=== PATIENT | female | born 1995 | race American Indian/Alaskan Native ===

== ENCOUNTER 2018-07-05 06:57 | Emergency (ER) | payer MEDICAID ==
[2018-07-05] MEDS ORDERED: DELTASONE PO ONE (07:41)
[2018-07-05] MEDS ORDERED: TYLENOL/CODEINE PO ONE (07:42)
--- NOTE | 2018-07-05 08:39 | Emergency Department Report ---
HPI - General Chief Complaint: Sore Throat Time Seen by Provider: 07/05/18 07:25 - HPI HPI: Patient is a 22-year-old female 36 weeks gestation with no prior medical conditions who presents to ED complaining of sore throat 2 days. Patient states she is intermittent coughing for the past week. Patient states when she saw her [employer] last week she was advised to take Robitussin for the cold/cough. She denies productive cough. She denies fevers/chills/nausea vomiting/ abdominal pain. Patient states she has a history of bronchitis and has an inhaler at home but is running out of puffs. Patient states she has appointment with her [employer] next week Sunday she reports good movement ED Past Medical Hx - Past Medical History Previous Medical History?: No - Surgical History Additional Surgical History: cyst removal, 08-30-2015 - Social History Smoking Status: Never Smoker Substance Use Type: None - Medications Home Medications: Home Medications Medication Instructions Recorded Confirmed Last Taken Type metroNIDAZOLE [Flagyl] 500 mg PO Q8H #21 tablet 07/06/14 Unknown Rx traMADol [Ultram 50 MG tab] 50 mg PO Q6HR PRN #12 tablet 07/06/14 Unknown Rx Dicyclomine [Bentyl] 10 mg PO QID PRN #20 capsule 01/01/16 Unknown Rx Doxycycline [Vibramycin] 100 mg PO Q12HR #28 capsule 01/01/16 Unknown Rx Ondansetron [Zofran Odt] 4 mg PO QID PRN #20 tab.rapdis 01/01/16 Unknown Rx ALBUTEROL Inhaler(NF) [VENTOLIN 1 puff IH PRN PRN #1 inha 07/05/18 Unknown Rx Inhaler(NF)] Acetamin/Codeine 120-12Mg/5 ml 5 ml PO TID #40 ml 07/05/18 Unknown Rx [Tylenol/Codeine 120-12 mg/5 ml] predniSONE [Deltasone] 20 mg PO DAILY #4 tablet 07/05/18 Unknown Rx ED Review of Systems ROS: Stated complaint: THROAT PAIN Other details as noted in HPI Constitutional: denies: chills, fever Eyes: denies: eye pain, eye discharge, vision change ENT: throat pain. denies: ear pain, hearing loss Respiratory: cough. denies: shortness of breath, SOB with exertion, SOB at rest , wheezing Cardiovascular: denies: chest pain, palpitations Endocrine: no symptoms reported Gastrointestinal: denies: abdominal pain, nausea, vomiting, diarrhea Genitourinary: denies: urgency, dysuria, discharge Musculoskeletal: denies: back pain, joint swelling, arthralgia Skin: denies: rash, lesions Neurological: denies: headache, weakness, paresthesias Psychiatric: denies: anxiety, depression Hematological/Lymphatic: denies: easy bleeding, easy bruising Physical Exam - Physical Exam Vital Signs: Vital Signs 07/05/18 07:04 Temperature 98.4 F Pulse Rate 101 H Respiratory 18 Rate Blood Pressure 116/67 O2 Sat by Pulse 97 Oximetry Physical Exam: GENERAL: Alert and oriented x3, no apparent distress, Normal Gait, atraumatic. HEAD: Head is normocephalic and a-traumatic. EYES: Extra ocular muscles are intact. Pupils are equal, round, and reactive to light and accommodation. EARS: symetrical, atraumatic, non tender, ear canal clear and mild cerumen, tympanic membrance non inflamed. gross auditory nml bilaterally. NOSE: Nose symetrical, Nontender,Nares appeared normal. MOUTH:Mouth is well hydrated and without lesions. Tonsils nonerythematous or swollen, Uvula midline, Tongue not elevated. Mucous membranes are moist. Posterior pharynx clear, no exudate or lesions. Patent airways. NECK: Supple. Non edematous, No carotid bruits. No lymphadenopathy or thyromegaly. No C-spine tenderness LUNGS: Symetrical with respiration, No wheezing, no rales or crackles, CTAB. HEART: S1, S2 present, regular rate and rhythm without murmur, no rubs, no gallops. Non tender to palpation Abdomen: Gravid SKIN: Warm and dry, No lesions, No ulceration or induration present. ED Course Vital Signs 07/05/18 07:04 Temperature 98.4 F Pulse Rate 101 H Respiratory 18 Rate Blood Pressure 116/67 O2 Sat by Pulse 97 Oximetry ED Medical Decision Making - Medical Decision Making 22-year-old female present with bronchitis ED course: Patient received 60 mg of prednisone and Tylenol with codeine Rapid strep test negative I discussed with patient bronchitis usually resolves on its own. I discussed the patient to get appropriate rest. Discussed with patient his symptoms worsen to return to ED immediately Vital signs are normalized, pulse rate came down prior to discharge. Patient is in no acute respiratory distress. Patient will be sent home on a short course of oral steroids with albuterol inhaler and continue Robitussin I discussed the patient to follow up with her doctor within a week. patient is in no respiratory distress she understands instructions. Critical care attestation.: If time is entered above; I have spent that time in minutes in the direct care of this critically ill patient, excluding procedure time. ED Disposition Clinical Impression: Bronchitis Disposition: DC-01 TO HOME OR SELFCARE Is pt being admited?: No Does the pt Need Aspirin: No Condition: Stable Instructions: Chronic Bronchitis (ED) Additional Instructions: Make sure to follow up with the primary care physician as discussed. Take all your medications as you've been prescribed. If you have any worsening symptoms or develop new symptoms please return to ED immediately. Prescriptions: Acetamin/Codeine 120-12Mg/5 ml [Tylenol/Codeine 120-12 mg/5 ml] 5 ml PO TID #40 ml ALBUTEROL Inhaler(NF) [VENTOLIN Inhaler(NF)] 1 puff IH PRN PRN #1 inha PRN Reason: Cough predniSONE [Deltasone] 20 mg PO DAILY #4 tablet Referrals: PRIMARY CARE, [Primary Care Provider] - 3-5 Days Forms: Work/School Release Form(ED) Time of Disposition: 08:49
[2018-07-05 09:18] VITALS: BP 112/79
== END 2018-07-05 09:15 | disposition home or self-care (01) ==
LOC: ED 06:57
DX: J40 Bronchitis, not specified as acute or chronic (principal)
CPT/HCPCS: 87116; 87430; 99283; J7512

== ENCOUNTER 2020-06-28 10:21 | Emergency (ER) | payer MEDICAID ==
[2020-06-28 10:44] VITALS: BP 146/86
== END 2020-06-28 11:18 | disposition left against medical advice (07) ==
LOC: ED 10:21
DX: R10.9 Unspecified abdominal pain (principal); Z53.21 Procedure and treatment not carried out due to patient leaving prior to being seen by health care provider

== ENCOUNTER 2020-06-28 20:36 | Emergency (ER) | payer MEDICAID ==
[2020-06-29] MEDS ORDERED: AZITHROMYCIN 250 MG TAB PO ONE (03:48)
[2020-06-29] MEDS ORDERED: LIDOCAINE-MPF (1%) 10 MG/1 ML VIAL 5 ML INFILTRATI ONE (03:54)
[2020-06-29] MEDS ORDERED: ONDANSETRON 4 MG ODT TAB PO ONE (03:55)
[2020-06-29] MEDS ORDERED: IBUPROFEN 800 MG TAB PO ONE (03:55)
[2020-06-29 04:25] LABS: Bilirubin,Urine NEG (Negative); Blood,Urine NEG (Negative); Color,Urine Yellow (Yellow); HCG Qualitative,Urine Negative (Negative); Protein,Urine <15 mg/dL mg/dL (Negative)
[2020-06-29] MEDS ORDERED: metroNIDAZOLE 500 MG TAB PO ONE (04:27)
--- NOTE | 2020-06-29 04:32 | Emergency Department Report ---
ED Female HPI - General Chief complaint: Urogenital-Female Stated complaint: SEVERE ABD PAIN/VAGINAL IRRITATION/POSS STD Source: patient Mode of arrival: Ambulatory Limitations: No Limitations - History of Present Illness Initial comments: Patient is a A0 24-year-old -[place] female with no past medical history who presents to the ED with vaginal discharge, vaginal pain and ulcerated lesion in the vaginal area for the last 2 days. Patient states that she suspects that she may have been infected with an STD by her after another woman called her and told her to come to the hospital for evaluation because she had been having unprotected sexual intercourse with her who has since made a . Patient denies dysuria, dyspareunia, nausea, v omiting, fever, chills, abdominal pain, dizziness, syncope, vaginal bleeding, cough, sore throat, headache or diarrhea. MD Complaint: vaginal discharge, possible STD, other (vaginal pain) -: Sudden, days(s) (2) Location: other (vaginal) Radiation: non-radiating Severity: severe Severity scale (0 -10): 8 Quality: sharp, aching Consistency: constant Improves with: none Worsens with: intercourse Are you Now?: No Last Menstrual Period: 06/17/20 EDC: 03/24/21 Associated Symptoms: denies other symptoms, vaginal discharge. denies: vaginal bleeding, abdominal pain, nausea/vomiting, fever/chills, headaches, loss of appetite, dysuria, hematuria, rash, seizure, shortness of breath, syncope, weakness, other - Related Data Sexually active: Yes : 2 Para: 2 A: 0 Previous Rx's Medication Instructions Recorded Last Taken Type metroNIDAZOLE [Flagyl] 500 mg PO Q8H #21 tablet 07/06/14 Unknown Rx traMADoL [Ultram 50 MG tab] 50 mg PO Q6HR PRN #12 tablet 07/06/14 Unknown Rx Dicyclomine [Bentyl] 10 mg PO QID PRN #20 capsule 01/01/16 Unknown Rx Ondansetron [Zofran Odt] 4 mg PO QID PRN #20 tab.rapdis 01/01/16 Unknown Rx ALBUTEROL Inhaler(NF) [VENTOLIN 1 puff IH PRN PRN #1 inha 07/05/18 Unknown Rx Inhaler(NF)] Acetamin/Codeine 120-12Mg/5 ml 5 ml PO TID #40 ml 07/05/18 Unknown Rx [Tylenol/Codeine 120-12 mg/5 ml] predniSONE [Deltasone] 20 mg PO DAILY #4 tablet 07/05/18 Unknown Rx DOXYCYCLINE Hyclate [Vibramycin 100 mg PO Q12HR #20 capsule 06/29/20 Unknown Rx CAP] Fluconazole (Nf) [Diflucan TAB] 150 mg PO ONCE #2 tablet 06/29/20 Unknown Rx Ibuprofen [Motrin] 800 mg PO Q8HR PRN #30 tablet 06/29/20 Unknown Rx Ondansetron [Zofran Odt] 4 mg PO Q8HR PRN #15 tab.rapdis 06/29/20 Unknown Rx Valacyclovir HCl [Valtrex] 1,000 mg PO Q8H #30 tablet 06/29/20 Unknown Rx metroNIDAZOLE [Flagyl] 500 mg PO Q12HR #14 tab 06/29/20 Unknown Rx Allergies Allergy/AdvReac Type Severity Reaction Status Date / Time latex Allergy Unknown Verified 06/28/20 21:36 ED Review of Systems ROS: Stated complaint: SEVERE ABD PAIN/VAGINAL IRRITATION/POSS STD Other details as noted in HPI Constitutional: denies: chills, fever Eyes: denies: eye pain, eye discharge, vision change ENT: denies: ear pain, throat pain Respiratory: denies: cough, shortness of breath, wheezing Cardiovascular: denies: chest pain, palpitations Endocrine: no symptoms reported Gastrointestinal: denies: abdominal pain, nausea, diarrhea Genitourinary: frequency, discharge, other (painful vaginal lesions; vaginal discharge). denies: urgency, dysuria Musculoskeletal: denies: back pain, joint swelling, arthralgia Skin: denies: rash, lesions Neurological: denies: headache, weakness, paresthesias Psychiatric: denies: anxiety, depression Hematological/Lymphatic: denies: easy bleeding, easy bruising ED Past Medical Hx - Past Medical History Previous Medical History?: Yes Hx Hypertension: Yes - Surgical History Past Surgical History?: Yes Additional Surgical History: cyst removal, 08-30-2015 - Social History Smoking Status: Never Smoker Substance Use Type: None - Medications Home Medications: Home Medications Medication Instructions Recorded Confirmed Last Taken Type metroNIDAZOLE [Flagyl] 500 mg PO Q8H #21 tablet 10/20/14 Unknown Rx traMADoL [Ultram 50 MG tab] 50 mg PO Q6HR PRN #12 tablet 07/06/14 Unknown Rx Dicyclomine [Bentyl] 10 mg PO QID PRN #20 capsule 01/01/16 Unknown Rx Ondansetron [Zofran Odt] 4 mg PO QID PRN #20 tab.rapdis 01/01/16 Unknown Rx ALBUTEROL Inhaler(NF) [VENTOLIN 1 puff IH PRN PRN #1 inha 07/05/18 Unknown Rx Inhaler(NF)] Acetamin/Codeine 120-12Mg/5 ml 5 ml PO TID #40 ml 07/05/18 Unknown Rx [Tylenol/Codeine 120-12 mg/5 ml] predniSONE [Deltasone] 20 mg PO DAILY #4 tablet 07/05/18 Unknown Rx DOXYCYCLINE Hyclate [Vibramycin 100 mg PO Q12HR #20 capsule 06/29/20 Unknown Rx CAP] Fluconazole (Nf) [Diflucan TAB] 150 mg PO ONCE #2 tablet 06/29/20 Unknown Rx Ibuprofen [Motrin] 800 mg PO Q8HR PRN #30 tablet 06/29/20 Unknown Rx Ondansetron [Zofran Odt] 4 mg PO Q8HR PRN #15 tab.rapdis 06/29/20 Unknown Rx Valacyclovir HCl [Valtrex] 1,000 mg PO Q8H #30 tablet 06/29/20 Unknown Rx metroNIDAZOLE [Flagyl] 500 mg PO Q12HR #14 tab 06/29/20 Unknown Rx ED Physical Exam - General Limitations: No Limitations General appearance: alert, in no apparent distress - Head Head exam: Present: atraumatic, normocephalic, normal inspection - Eye Eye exam: Present: normal appearance, PERRL, EOMI Pupils: Present: normal accommodation - ENT ENT exam: Present: normal exam, normal orophraynx, mucous membranes moist, TM's normal bilaterally, normal external ear exam - Neck Neck exam: Present: normal inspection, full ROM - Respiratory Respiratory exam: Present: normal lung sounds bilaterally. Absent: respiratory distress, wheezes, rales, rhonchi, chest wall tenderness, accessory muscle use, decreased breath sounds, prolonged expiratory - Cardiovascular Cardiovascular Exam: Present: regular rate, normal rhythm, normal heart sounds. Absent: systolic murmur, diastolic murmur, rubs, gallop - GI/Abdominal GI/Abdominal exam: Present: soft, normal bowel sounds. Absent: tenderness, guarding, rebound, hyperactive bowel sounds, hypoactive bowel sounds, o rganomegaly - External exam: Present: erythema, lesions (ulcerated tender lesions in the perineum and vaginal vault) Speculum exam: Present: vaginal discharge, cervical discharge Bi-manual exam: Present: normal bi-manual exam, other (Female ED [employer] substance abuse services director Ms Brown present) - Extremities Exam Extremities exam: Present: normal inspection, full ROM, normal capillary refill - Back Exam Back exam: Present: normal inspection, full ROM. Absent: tenderness, CVA tenderness (R), CVA tenderness (L), muscle spasm - Neurological Exam Neurological exam: Present: alert, oriented X3, CN II-XII intact, normal gait, reflexes normal - Psychiatric Psychiatric exam: Present: normal affect, normal mood - Skin Skin exam: Present: warm, dry, intact, normal color. Absent: rash ED Course Vital Signs 06/28/20 06/29/20 21:35 04:08 Temperature 98.6 F Pulse Rate 82 Respiratory 18 14 Rate Blood Pressure 120/75 O2 Sat by Pulse 98 Oximetry ED Medical Decision Making - Medical Decision Making This is a A0 24-year-old -[place] female with no past medical history who presents to the ED with vaginal discharge, vaginal pain and ulcerated lesion in the vaginal area for the last 2 days. Patient states that she suspects that she may have been infected with an STD by her after another woman called her and told her to come to the hospital for evaluation because she had been having unprotected sexual intercourse with her who has since made a . In the ED, patient is alert and oriented x3 and is not in distress. Urinalysis is unremarkable and urine hCG test is negative. Wet prep was positive for trichomonas and Gardnerella vaginalis but no Vee. Chlamydia and gonorrhea test results are pending. Patient was empirically treated for chlamydia and gonorrhea in the ED and also treated for trichomonas with Flagyl in the ED. Patient was also treated for pain. On reevaluation, patient's pain is well controlled with medications. Patient was discharged home on oral antibiotics for bacterial vaginosis as well as antiviral for genital herpes infection. Patient was advised to follow-up at the [facility] for further STD testing including HIV and syphilis. Patient was advised to return to the ED immediately if symptoms get worse. - Differential Diagnosis Genital herpes; STD; Trichomonas; BV; PID Critical care attestation.: If time is entered above; I have spent that time in minutes in the direct care of this critically ill patient, excluding procedure time. ED Disposition Clinical Impression: STD (sexually transmitted disease), Trichomonas infection, Bacterial vaginosis Genital herpes simplex Qualifiers: Herpes simplex infection site: vulvovaginitis Qualified Code(s): A60.04 - Herpesviral vulvovaginitis Disposition: TO HOME OR SELFCARE Is pt being admited?: No Does the pt Need Aspirin: No Condition: Stable Instructions: Bacterial Vaginosis (ED), Genital Herpes Simplex (ED), Sexually Transmitted Diseases (ED), Trichomoniasis (ED) Additional Instructions: Take medication with food, drink plenty of fluids and follow-up with your primary care physician in 7 to 10 days for reevaluation. Ensure that you follow-up at the [facility] for further STD testing inc luding HIV and syphilis. Ensure that your sexual partner is also treated at the health department for the same infections. Return to the ED immediately if symptoms get worse. Prescriptions: Fluconazole (Nf) [Diflucan TAB] 150 mg PO ONCE #2 tablet metroNIDAZOLE [Flagyl] 500 mg PO Q12HR #14 tab Ibuprofen [Motrin] 800 mg PO Q8HR PRN #30 tablet PRN Reason: Pain , Severe (7-10) Valacyclovir HCl [Valtrex] 1,000 mg PO Q8H #30 tablet DOXYCYCLINE Hyclate [Vibramycin CAP] 100 mg PO Q12HR #20 capsule Ondansetron [Zofran Odt] 4 mg PO Q8HR PRN #15 tab.rapdis PRN Reason: Nausea Referrals: [facility] [Outside] - 3-5 Days [facility] [Provider Group] - 7-10 days Forms: STI Treatment and Prevention, Work/School Release Form(ED) Time of Disposition: 04:34 Print Language: BURMESE
[2020-06-29 05:51] VITALS: BP 116/63
== END 2020-06-29 05:50 | disposition home or self-care (01) ==
LOC: ED 20:36
DX: A60.04 Herpesviral vulvovaginitis (principal); A59.01 Trichomonal vulvovaginitis; A63.8 Other specified predominantly sexually transmitted diseases; N76.0 Acute vaginitis; B96.89 Other specified bacterial agents as the cause of diseases classified elsewhere; I10 Essential (primary) hypertension; Z91.040 Latex allergy status; Z98.890 Other specified postprocedural states; Z79.899 Other long term (current) drug therapy
CPT/HCPCS: 81001; 81025; 87210; 87591; 96372; 99284; J0696; Q0162

== ENCOUNTER 2021-05-23 10:33 | Emergency (ER) | payer MEDICAID ==
[2021-05-23 11:02] VITALS: BP 115/68
--- NOTE | 2021-05-23 11:47 | Emergency Department Report ---
HPI - General Chief Complaint: Abdominal Pain Time Seen by Provider: 05/23/21 11:44 - HPI HPI: This is a 25-year-old -[place] female presents to the emergency department with complaint of 2 different episodes of bright red blood in the stool or after having a bowel movement. The first time the patient noticed this was on the second, 4 days ago. The patient says that she was still on her menstrual cycle at that time so she thought that maybe it could be related to her cycle. However, this morning the patient once again had a bowel movement in which she says that there was a large amount of bright red blood seen in the stool and in the toilet bowl. She has some occasional lower abdominal cramping pain but says that she just got off her menstrual cycle. She denies any fever, nausea, vomiting, diarrhea, rectal pain. The patient says that she has a history of irregular bowels that is "normal" for her. Sometimes she will go 5 to 7 days without having a bowel movement. She denies any chronic opiate use. She says that she "only drinks water" and feels that she is adequately hydrated. No primary care physician. ED Past Medical Hx - Past Medical History Previous Medical History?: Yes Hx Hypertension: Yes - Surgical History Past Surgical History?: Yes Additional Surgical History: cyst removal, 08-30-2015 - Social History Smoking Status: Never Smoker Substance Use Type: None - Medications Home Medications: Home Medications Medication Instructions Recorded Confirmed Last Taken Type metroNIDAZOLE [Flagyl] 500 mg PO Q8H #21 tablet 07/06/14 Unknown Rx traMADoL [Ultram 50 MG tab] 50 mg PO Q6HR PRN #12 tablet 07/06/14 Unknown Rx Dicyclomine [Bentyl] 10 mg PO QID PRN #20 capsule 01/01/16 Unknown Rx Ondansetron [Zofran Odt] 4 mg PO QID PRN #20 tab.rapdis 01/01/16 Unknown Rx ALBUTEROL Inhaler(NF) [VENTOLIN 1 puff IH PRN PRN #1 inha 07/05/18 Unknown Rx Inhaler(NF)] Acetamin/Codeine 120-12Mg/5 ml 5 ml PO TID #40 ml 07/05/18 Unknown Rx [Tylenol/Codeine 120-12 mg/5 ml] predniSONE [Deltasone] 20 mg PO DAILY #4 tablet 07/05/18 Unknown Rx DOXYCYCLINE Hyclate [Vibramycin 100 mg PO Q12HR #20 capsule 06/29/20 Unknown Rx CAP] Fluconazole (Nf) [Diflucan TAB] 150 mg PO ONCE #2 tablet 06/29/20 Unknown Rx Ibuprofen [Motrin] 800 mg PO Q8HR PRN #30 tablet 06/29/20 Unknown Rx Ondansetron [Zofran Odt] 4 mg PO Q8HR PRN #15 tab.rapdis 06/29/20 Unknown Rx Valacyclovir HCl [Valtrex] 1,000 mg PO Q8H #30 tablet 06/29/20 Unknown Rx metroNIDAZOLE [Flagyl] 500 mg PO Q12HR #14 tab 06/29/20 Unknown Rx ED Review of Systems ROS: Stated complaint: BLOOD IN STOOL/AB PAIN Other details as noted in HPI Comment: All other systems reviewed and negative Constitutional: denies: chills, fever Eyes: denies: eye pain, vision change ENT: denies: ear pain, throat pain Respiratory: denies: cough, shortness of breath Cardiovascular: denies: chest pain, palpitations Gastrointestinal: abdominal pain (Occasional abdominal cramping pain), other (Bright red blood per rectum). denies: vomiting Genitourinary: denies: dysuria, discharge Musculoskeletal: denies: back pain, arthralgia Skin: denies: rash, lesions Neurological: denies: headache, weakness Physical Exam - Physical Exam Vital Signs: Vital Signs 05/23/21 11:01 Temperature 98.2 F Pulse Rate 72 Respiratory 18 Rate Blood Pressure 115/68 O2 Sat by Pulse 100 Oximetry Physical Exam: GENERAL: The patient is well-developed well-nourished. HENT: Normocephalic. Atraumatic. Patient has moist mucous membranes. EYES: Extraocular motions are intact. NECK: Supple. Trachea is midline. CHEST/LUNGS: Clear to auscultation. There is no respiratory distress noted. HEART/CARDIOVASCULAR: Regular. There is no tachycardia. There is no murmur. ABDOMEN: Abdomen is soft, nontender. Patient has normal bowel sounds. There is no abdominal distention. SKIN: Skin is warm and dry. NEURO: The patient is awake, alert, and oriented. The patient is cooperative. Normal speech. MUSCULOSKELETAL: There is no tenderness or deformity. There is no limitation range of motion. RECTAL: No external hemorrhoid. No gross blood. Brown stool is positive on guaiac testing. ED Course Vital Signs 05/23/21 11:01 Temperature 98.2 F Pulse Rate 72 Respiratory 18 Rate Blood Pressure 115/68 O2 Sat by Pulse 100 Oximetry - Reevaluation(s) Reevaluation #1: 05/23/21 13:04 I was chaperoned for the rectal examination by EMT [place]. ED Medical Decision Making - Lab Data Result diagrams: 05/23/21 12:05 05/23/21 12:05 Lab Results 05/23/21 05/23/21 05/23/21 Range/Units 12:05 12:05 12:05 WBC 4.7 (4.5-11.0) K/mm3 RBC 3.98 (3.65-5.03) M/mm3 Hgb 11.2 (10.1-14.3) gm/dl Hct 34.5 (30.3-42.9) % MCV 87 (79-97) fl MCH 28 (28-32) pg MCHC 33 (30-34) % RDW 13.7 (13.2-15.2) % Plt Count 305 (140-440) K/mm3 Lymph % (Auto) 40.3 H (13.4-35.0) % Warren % (Auto) 4.8 (0.0-7.3) % Eos % (Auto) 1.4 (0.0-4.3) % Baso % (Auto) 0.3 (0.0-1.8) % Lymph # (Auto) 1.9 (1.2-5.4) K/mm3 Warren # (Auto) 0.2 (0.0-0.8) K/mm3 Eos # (Auto) 0.1 (0.0-0.4) K/mm3 Baso # (Auto) 0.0 (0.0-0.1) K/mm3 Seg Neutrophils % 53.2 (40.0-70.0) % Seg Neutrophils # 2.5 (1.8-7.7) K/mm3 PT 13.6 (12.2-14.9) Sec. INR 0.99 (0.87-1.13) APTT 31.4 (24.2-36.6) Sec. Sodium 136 L (137-145) mmol/L Potassium 3.7 (3.6-5.0) mmol/L Chloride 104.3 (98-107) mmol/L Carbon Dioxide 26 (22-30) mmol/L Anion Gap 9 mmol/L BUN 7 (7-17) mg/dL Creatinine 0.6 (0.6-1.2) mg/dL Estimated GFR > 60 ml/min BUN/Creatinine Ratio 12 % Glucose 82 (65-100) mg/dL Calcium 9.0 (8.4-10.2) mg/dL Total Bilirubin 0.30 (0.1-1.2) mg/dL AST 15 (5-40) units/L ALT 17 (7-56) units/L Alkaline Phosphatase 86 (35-129) units/L Total Protein 7.8 (6.3-8.2) g/dL Albumin 3.8 L (3.9-5) g/dL Albumin/Globulin Ratio 1.0 % HCG, Qual (Negative) 05/23/21 Range/Units 12:05 WBC (4.5-11.0) K/mm3 RBC (3.65-5.03) M/mm3 Hgb (10.1-14.3) gm/dl Hct (30.3-42.9) % MCV (79-97) fl MCH (28-32) pg MCHC (30-34) % RDW (13.2-15.2) % Plt Count (140-440) K/mm3 Lymph % (Auto) (13.4-35.0) % Warren % (Auto) (0.0-7.3) % Eos % (Auto) (0.0-4.3) % Baso % (Auto) (0.0-1.8) % Lymph # (Auto) (1.2-5.4) K/mm3 Warren # (Auto) (0.0-0.8) K/mm3 Eos # (Auto) (0.0-0.4) K/mm3 Baso # (Auto) (0.0-0.1) K/mm3 Seg Neutrophils % (40.0-70.0) % Seg Neutrophils # (1.8-7.7) K/mm3 PT (12.2-14.9) Sec. INR (0.87-1.13) APTT (24.2-36.6) Sec. Sodium (137-145) mmol/L Potassium (3.6-5.0) mmol/L Chloride (98-107) mmol/L Carbon Dioxide (22-30) mmol/L Anion Gap mmol/L BUN (7-17) mg/dL Creatinine (0.6-1.2) mg/dL Estimated GFR ml/min BUN/Creatinine Ratio % Glucose (65-100) mg/dL Calcium (8.4-10.2) mg/dL Total Bilirubin (0.1-1.2) mg/dL AST (5-40) units/L ALT (7-56) units/L Alkaline Phosphatase (35-129) units/L Total Protein (6.3-8.2) g/dL Albumin (3.9-5) g/dL Albumin/Globulin Ratio % HCG, Qual Negative (Negative) - Medical Decision Making This patient presents to the emergency department with 2 different episodes of rectal bleeding seen during bowel movements. On examination the abdomen is soft, nondistended and nontoxic in appearance. Chaperoned rectal examination does not show any hemorrhoid or lesion, gross blood, but the brown stool is positive on guaiac testing. Labs have been mostly unremarkable including CBC, metabolic panel, coags, and patient is not . Vital signs reassuring throughout her ED course including being afebrile. For all these reasons the patient appears safe for discharge home at this time. She has been given outpatient referral for gastroenterology as she may need a colonoscopy in the near future. She will return to the emergency department with any worsening of her symptoms or with any acute distress. Critical Care Time: No Critical care attestation.: If time is entered above; I have spent that time in minutes in the direct care of this critically ill patient, excluding procedure time. ED Disposition Clinical Impression: Rectal bleeding Disposition: 01 HOME / SELF CARE / HOMELESS Is pt being admited?: No Condition: Stable Instructions: Rectal Bleeding, Abdominal Pain (ED) Additional Instructions: Please follow-up with a primary care physician in the next few days. Please try and quit smoking. I am giving you a referral for [facility] to follow-up regarding the rectal bleeding. You may need a colonoscopy in the near future. Return to the emergency department with any worsening of your symptoms, new or concerning symptoms not addressed during this current emergency department visit, or with any acute distress. Referrals: PRIMARY CARE, [Primary Care Provider] - 2-3 Days [facility] [Provider Group] - 2-3 Days Time of Disposition: 13:05
[2021-05-23 12:29] LABS: Basophils % (Auto) 0.3 % (0.0-1.8); Eosinophils # (Auto) 0.1 K/mm3 (0.0-0.4); Eosinophils % (Auto) 1.4 % (0.0-4.3); Hematocrit 34.5 % (30.3-42.9); Hemoglobin 11.2 gm/dl (10.1-14.3); Lymphocytes # (Auto) 1.9 K/mm3 (1.2-5.4); Lymphocytes % (Auto) 40.3 % (13.4-35.0); Mean Corpuscular HGB Conc 33 % (30-34); Mean Corpuscular Volume 87 fl (79-97); Monocytes # (Auto) 0.2 K/mm3 (0.0-0.8); Monocytes % (Auto) 4.8 % (0.0-7.3); Platelet Count 305 K/mm3 (140-440); Red Blood Count 3.98 M/mm3 (3.65-5.03); Red Cell Distribution Width 13.7 % (13.2-15.2)
[2021-05-23 12:40] LABS: INR 0.99 (0.87-1.13)
[2021-05-23 12:41] LABS: Partial Thromboplastin Time 31.4 Sec. (24.2-36.6)
[2021-05-23 12:47] LABS: Alanine Aminotransferase 17 units/L (7-56); Albumin 3.8 g/dL (3.9-5); Blood Urea Nitrogen 7 mg/dL (7-17); Hemolysis Index 8
[2021-05-23 12:52] LABS: BUN/Creatinine Ratio 12
== END 2021-05-23 13:44 | disposition home or self-care (01) ==
LOC: ED 10:33
DX: K62.5 Hemorrhage of anus and rectum (principal); I10 Essential (primary) hypertension; Z98.890 Other specified postprocedural states
CPT/HCPCS: 36415; 80053; 84703; 85025; 85610; 85730; 99282; 99283

== ENCOUNTER 2022-04-21 09:08 | Emergency (ER) | payer MEDICAID ==
[2022-04-21] MEDS ORDERED: dexAMETHasone 4 MG/ML VIAL IM ONE (14:25)
--- NOTE | 2022-04-21 15:04 | Emergency Department Report ---
- General Chief complaint: Headache Stated complaint: FLU SYM/HEADACHE/ SORES ON HAND Time Seen by Provider: 04/21/22 14:03 Source: patient Mode of arrival: Ambulatory Limitations: No Limitations - History of Present Illness Initial comments: 26-year-old black female with a past medical history of liver disorder presents to the emergency department for evaluation of rash to her hands that she noticed yesterday. She states that she noticed small red bumps between her fingers on her bilateral hands yesterday along with some redness to the palms of her hands. She states that rash is painful and feels like it is burning. She states that she also has some flulike symptoms including low-grade fever, body aches, headache, and sore throat for 3 days prior. Patient states that she is not concerned about sexually transmitted diseases such as syphilis because she had a syphilis test done in February that was negative. She states that her 6-year-old son had the same rash, was given Benadryl, and rash resolved for him. She states that she took some Benadryl without improvement. She states that she needs clearance to go back to her job stating that she is not contagious. complaint: rash -: Gradual, days(s) (1) Tetanus Up to Date: unsure Location: L hand, R hand Severity scale (0 -10): 4 Quality: burning Consistency: constant Associated symptoms: fever, malaise, myalgias Treatments Prior to Arrival: none - Related Data Previous Rx's Medication Instructions Recorded Last Taken Type metroNIDAZOLE [Flagyl] 500 mg PO Q8H #21 tablet 07/06/14 Unknown Rx traMADoL [Ultram 50 MG tab] 50 mg PO Q6HR PRN #12 tablet 07/06/14 Unknown Rx Dicyclomine [Bentyl] 10 mg PO QID PRN #20 capsule 01/01/16 Unknown Rx Ondansetron [Zofran Odt] 4 mg PO QID PRN #20 tab.rapdis 01/01/16 Unknown Rx ALBUTEROL Inhaler(NF) [VENTOLIN 1 puff IH PRN PRN #1 inha 07/05/18 Unknown Rx Inhaler(NF)] Acetamin/Codeine 120-12Mg/5 ml 5 ml PO TID #40 ml 07/05/18 Unknown Rx [Tylenol/Codeine 120-12 mg/5 ml] predniSONE [Deltasone] 20 mg PO DAILY #4 tablet 07/05/18 Unknown Rx DOXYCYCLINE Hyclate [Vibramycin 100 mg PO Q12HR #20 capsule 06/29/20 Unknown Rx CAP] Fluconazole (Nf) [Diflucan TAB] 150 mg PO ONCE #2 tablet 06/29/20 Unknown Rx Ibuprofen [Motrin] 800 mg PO Q8HR PRN #30 tablet 06/29/20 Unknown Rx Ondansetron [Zofran Odt] 4 mg PO Q8HR PRN #15 tab.rapdis 06/29/20 Unknown Rx Valacyclovir HCl [Valtrex] 1,000 mg PO Q8H #30 tablet 06/29/20 Unknown Rx metroNIDAZOLE [Flagyl] 500 mg PO Q12HR #14 tab 06/29/20 Unknown Rx Allergies Allergy/AdvReac Type Severity Reaction Status Date / Time latex Allergy Unknown Verified 04/21/22 09:31 Abscess Boil HPI - HPI Chief Complaint: Headache Stated Complaint: FLU SYM/HEADACHE/ SORES ON HAND Time Seen by Provider: 04/21/22 14:03 Home Medications: Previous Rx's Medication Instructions Recorded Last Taken Type metroNIDAZOLE [Flagyl] 500 mg PO Q8H #21 tablet 07/06/14 Unknown Rx traMADoL [Ultram 50 MG tab] 50 mg PO Q6HR PRN #12 tablet 07/06/14 Unknown Rx Dicyclomine [Bentyl] 10 mg PO QID PRN #20 capsule 01/01/16 Unknown Rx Ondansetron [Zofran Odt] 4 mg PO QID PRN #20 tab.rapdis 01/01/16 Unknown Rx ALBUTEROL Inhaler(NF) [VENTOLIN 1 puff IH PRN PRN #1 inha 07/05/18 Unknown Rx Inhaler(NF)] Acetamin/Codeine 120-12Mg/5 ml 5 ml PO TID #40 ml 07/05/18 Unknown Rx [Tylenol/Codeine 120-12 mg/5 ml] predniSONE [Deltasone] 20 mg PO DAILY #4 tablet 07/05/18 Unknown Rx DOXYCYCLINE Hyclate [Vibramycin 100 mg PO Q12HR #20 capsule 06/29/20 Unknown Rx CAP] Fluconazole (Nf) [Diflucan TAB] 150 mg PO ONCE #2 tablet 06/29/20 Unknown Rx Ibuprofen [Motrin] 800 mg PO Q8HR PRN #30 tablet 06/29/20 Unknown Rx Ondansetron [Zofran Odt] 4 mg PO Q8HR PRN #15 tab.rapdis 06/29/20 Unknown Rx Valacyclovir HCl [Valtrex] 1,000 mg PO Q8H #30 tablet 06/29/20 Unknown Rx metroNIDAZOLE [Flagyl] 500 mg PO Q12HR #14 tab 06/29/20 Unknown Rx Allergies/Adverse Reactions: Allergies Allergy/AdvReac Type Severity Reaction Status Date / Time latex Allergy Unknown Verified 04/21/22 09:31 ED Review of Systems ROS: Stated complaint: FLU SYM/HEADACHE/ SORES ON HAND Other details as noted in HPI Comment: All other systems reviewed and negative Constitutional: fever, malaise. denies: chills, diaphoresis, weakness Eyes: denies: eye discharge, vision change ENT: throat pain. denies: congestion Respiratory: denies: cough, shortness of breath Cardiovascular: denies: chest pain, palpitations Gastrointestinal: denies: abdominal pain, nausea, vomiting Musculoskeletal: denies: back pain Skin: rash Neurological: headache. denies: weakness ED Past Medical Hx - Past Medical History Previous Medical History?: No Hx Hypertension: Yes - Surgical History Past Surgical History?: No Additional Surgical History: cyst removal, 08-30-2015 - Social History Smoking Status: Never Smoker Substance Use Type: None - Medications Home Medications: Home Medications Medication Instructions Recorded Confirmed Last Taken Type metroNIDAZOLE [Flagyl] 500 mg PO Q8H #21 tablet 07/06/14 Unknown Rx traMADoL [Ultram 50 MG tab] 50 mg PO Q6HR PRN #12 tablet 07/06/14 Unknown Rx Dicyclomine [Bentyl] 10 mg PO QID PRN #20 capsule 01/01/16 Unknown Rx Ondansetron [Zofran Odt] 4 mg PO QID PRN #20 tab.rapdis 01/01/16 Unknown Rx ALBUTEROL Inhaler(NF) [VENTOLIN 1 puff IH PRN PRN #1 inha 07/05/18 Unknown Rx Inhaler(NF)] Acetamin/Codeine 120-12Mg/5 ml 5 ml PO TID #40 ml 07/05/18 Unknown Rx [Tylenol/Codeine 120-12 mg/5 ml] predniSONE [Deltasone] 20 mg PO DAILY #4 tablet 07/05/18 Unknown Rx DOXYCYCLINE Hyclate [Vibramycin 100 mg PO Q12HR #20 capsule 06/29/20 Unknown Rx CAP] Fluconazole (Nf) [Diflucan TAB] 150 mg PO ONCE #2 tablet 06/29/20 Unknown Rx Ibuprofen [Motrin] 800 mg PO Q8HR PRN #30 tablet 06/29/20 Unknown Rx Ondansetron [Zofran Odt] 4 mg PO Q8HR PRN #15 tab.rapdis 06/29/20 Unknown Rx Valacyclovir HCl [Valtrex] 1,000 mg PO Q8H #30 tablet 06/29/20 Unknown Rx metroNIDAZOLE [Flagyl] 500 mg PO Q12HR #14 tab 06/29/20 Unknown Rx ED Physical Exam - General Limitations: No Limitations General appearance: alert, in no apparent distress - Head Head exam: Present: atraumatic, normocephalic, normal inspection - Eye Eye exam: Present: normal appearance. Absent: conjunctival injection - ENT ENT exam: Present: normal exam - Expanded ENT Exam Expanded Throat exam: Positive: tonsillar erythema, tonsillomegaly. Negative: tonsillar exudate, R peritonsillar mass, L peritonsillar mass - Neck Neck exam: Present: tenderness, lymphadenopathy - Respiratory Respiratory exam: Present: normal lung sounds bilaterally. Absent: respiratory distress, wheezes, rales, rhonchi, stridor, chest wall tenderness - Cardiovascular Cardiovascular Exam: Present: regular rate, normal heart sounds - GI/Abdominal GI/Abdominal exam: Present: soft, normal bowel sounds. Absent: distended, tenderness, guarding, rebound, rigid - Extremities Exam Extremities exam: Present: normal capillary refill. Absent: normal inspection - Back Exam Back exam: Present: normal inspection - Neurological Exam Neurological exam: Present: alert, oriented X3, normal gait - Psychiatric Psychiatric exam: Present: normal affect, normal mood - Skin Skin exam: Present: warm, dry, normal color, rash (Noted to have diffuse karen thematous rash to bilateral hands. Rash not blanchable. Noted to have some areas to wrist that resemble vesicles.) ED Course Vital Signs 04/21/22 04/21/22 09:29 15:10 Temperature 98.8 F 98.2 F Pulse Rate 87 84 Respiratory 18 16 Rate Blood Pressure 116/73 113/71 [Left] O2 Sat by Pulse 99 100 Oximetry ED Medical Decision Making - Medical Decision Making 26-year-old black female with a past medical history of liver disorder presents to the emergency department for evaluation of rash to her hands that she noticed yesterday. She states that she noticed small red bumps between her fingers on her bilateral hands yesterday along with some redness to the palms of her hands. She states that rash is painful and feels like it is burning. She states that she also has some flulike symptoms including low-grade fever, body aches, headache, and sore throat for 3 days prior. Patient states that she is not concerned about sexually transmitted diseases such as syphilis because she had a syphilis test done in February that was negative. She states that her 6-year-old son had the same rash, was given Benadryl, and rash resolved for him. She states that she took some Benadryl without improvement. She states that she needs clearance to go back to her job stating that she is not contagious. Patient was given one-time dose of Decadron to improve erythema burning of rash. Patient was offered penicillin for possible rash of secondary syphilis but she refused. Patient was referred to Department of public health or urgent care to follow-up for testing for possible monkey box and to get released to go back to work. She is advised to return to the emergency department as needed. Critical care attestation.: If time is entered above; I have spent that time in minutes in the direct care of this critically ill patient, excluding procedure time. ED Disposition Clinical Impression: Rash of both hands Disposition: 01 HOME / SELF CARE / HOMELESS Is pt being admited?: No Does the pt Need Aspirin: No Condition: Stable Instructions: Rash, Adult, [id number] Additional Instructions: Follow-up with the department of public health for further evaluation and testing. Follow-up with your primary care provider if no improvement or worsening symptoms. Return to the emergency department as needed. Referrals: ROSITA ZUÑIGA MD [Staff Physician] - 3-[address] [facility] [Other] - 3-[address] [facility] [Other] - [facility] - 3-5 Days Time of Disposition: 15:04
[2022-04-21 15:29] VITALS: BP 113/71
== END 2022-04-21 15:41 | disposition home or self-care (01) ==
LOC: ED 09:08
DX: R21 Rash and other nonspecific skin eruption (principal); I10 Essential (primary) hypertension; Z91.040 Latex allergy status
CPT/HCPCS: 96372; 99282; J1100